=== PATIENT | male | born 1940 | race Caucasian/White ===

== ENCOUNTER 2017-04-06 08:49 | Emergency (ER) | payer MEDICARE ==
[2017-04-06 10:20] LABS: BASOPHILS 0 % (0-2); EOSINOPHILS 0 % (0-7); HEMATOCRIT 43.1 % (42.0-54.0); HEMOGLOBIN 14.6 g/dL (13.5-17.5); IMMATURE GRANULOCYTES 0.2 % (0-5); LYMPHOCYTES 5.7 % (15-50); MCH 30.9 pg (26.0-34.0); MCHC 33.9 g/dL (31.0-37.0); MCV 91.3 fL (80.0-100.0); MEAN PLATELET VOLUME 10.3 fL (7.4-10.4); MONOCYTES 5.4 % (2-11); NEUTROPHILS 88.7 % (40-80); PLATELET COUNT 287 10x3/uL (130-400); RBC 4.72 10x6/uL (4.20-6.10); RDW 12.6 % (11.5-14.5); WBC 13.2 10x3/uL (4.8-10.8)
[2017-04-06 10:34] LABS: ALBUMIN 3.5 g/dL (3.4-5.0); ANION GAP 13.5 mmol/L (8-16); BILIRUBIN - TOTAL 0.24 mg/dL (0.2-1.3); CALCIUM 9.1 mg/dL (8.5-10.1); CARBON DIOXIDE 26.7 mmol/L (21.0-32.0); CREATININE - SERUM 1.2 mg/dL (0.6-1.3); POTASSIUM - SERUM 4.2 mmol/L (3.5-5.1); PROTEIN - SERUM 7.7 g/dL (6.4-8.2)
[2017-04-06 10:41] LABS: TROPONIN-I 0.033 ng/mL (0.000-0.060)
[2017-04-06 11:16] LABS: APPEARANCE CLEAR (CLEAR); BACTERIA FEW /hpf (NONE SEEN); BILIRUBIN NEGATIVE (NEGATIVE); COLOR STRAW (YELLOW); EPITHELIAL CELLS 0-5 /hpf (0-5); GLUCOSE NEGATIVE (NEGATIVE); KETONE NEGATIVE (NEGATIVE); MUCUS <1+ /lpf (NONE SEEN); NITRITE NEGATIVE (NEGATIVE); PROTEIN NEGATIVE (NEGATIVE); RED CELLS - URINE 0-5 /hpf (0-5); SPECIFIC GRAVITY 1.015 (1.005-1.020); UROBILINOGEN NORMAL (NORMAL); WHITE CELLS - URINE OCC /hpf (0-5)
== END 2017-04-06 12:30 | disposition home or self-care (01) ==
LOC: D.ER 08:49
PROVIDERS: Emergency Medicine
DX: G45.9 Transient cerebral ischemic attack, unspecified (principal)

== ENCOUNTER 2017-04-06 14:07 | Inpatient (IN) | payer MEDICARE ==
[2017-04-06 14:35] LABS: BASOPHILS 0.1 % (0-2); EOSINOPHILS 0 % (0-7); HEMATOCRIT 43.1 % (42.0-54.0); HEMOGLOBIN 14.7 g/dL (13.5-17.5); IMMATURE GRANULOCYTES 0.2 % (0-5); LYMPHOCYTES 10.5 % (15-50); MCH 30.8 pg (26.0-34.0); MCHC 34.1 g/dL (31.0-37.0); MCV 90.4 fL (80.0-100.0); MEAN PLATELET VOLUME 10.5 fL (7.4-10.4); NEUTROPHILS 83.2 % (40-80); PLATELET COUNT 302 10x3/uL (130-400); RBC 4.77 10x6/uL (4.20-6.10); RDW 12.7 % (11.5-14.5); WBC 13.3 10x3/uL (4.8-10.8)
[2017-04-06 14:48] LABS: APTT 25.8 SECONDS (22.8-39.4)
[2017-04-06 14:53] LABS: ALBUMIN 3.6 g/dL (3.4-5.0); ANION GAP 14.1 mmol/L (8-16); BILIRUBIN - TOTAL 0.25 mg/dL (0.2-1.3); CARBON DIOXIDE 23.7 mmol/L (21.0-32.0); CREATININE - SERUM 1.3 mg/dL (0.6-1.3); POTASSIUM - SERUM 3.8 mmol/L (3.5-5.1); PROTEIN - SERUM 7.9 g/dL (6.4-8.2)
[2017-04-06 17:17] VITALS: BMI 27.5
[2017-04-06 18:08] LABS: CHOL - HDL RATIO 4.5 ratio (2.3-4.9); CHOLESTEROL, TOTAL 245 mg/dL (0-200); CKMB 2.7 U/L (0.0-3.6); CREATINE KINASE 78 UL (21-232); HDL CHOLESTEROL 55 mg/dL (32-96); LDL CHOLESTEROL 178 mg/dL (0-100); LDL-HDL RATIO 3.2 ratio (1.5-3.5); TRIGLYCERIDE 61 mg/dL (30-200); TROPONIN-I 0.045 ng/mL (0.000-0.060)
[2017-04-06 19:49] VITALS: BP 147/78
--- NOTE | 2017-04-06 20:00 | NUR ---
PT AOX4. DENIES PAIN AT THIS TIME. STATES WEAKNESS IN RUE. IV IN RIGHT FA PATENT WITH NS @ 50. URINAL AT BEDSIDE. DENIES FURTHER NEEDS AT THIS TIME. WILL CONTINUE TO MONITOR.
[2017-04-07] VITALS: BP 148/90
[2017-04-07 00:10] LABS: TROPONIN-I 0.073 ng/mL (0.000-0.060)
[2017-04-07 04:00] VITALS: BP 162/87
--- NOTE | 2017-04-07 04:08 | NUR ---
PRN ZOFRAN ADMINISTERED AT THIS TIME FOR PT C/O NAUSEA.
[2017-04-07 06:09] LABS: BASOPHILS 0.1 % (0-2); EOSINOPHILS 0.2 % (0-7); HEMATOCRIT 43.9 % (42.0-54.0); HEMOGLOBIN 14.7 g/dL (13.5-17.5); IMMATURE GRANULOCYTES 0.3 % (0-5); LYMPHOCYTES 12.1 % (15-50); MCH 30.8 pg (26.0-34.0); MCHC 33.5 g/dL (31.0-37.0); MCV 91.8 fL (80.0-100.0); MEAN PLATELET VOLUME 10.8 fL (7.4-10.4); MONOCYTES 9.8 % (2-11); NEUTROPHILS 77.5 % (40-80); PLATELET COUNT 328 10x3/uL (130-400); RBC 4.78 10x6/uL (4.20-6.10); RDW 12.8 % (11.5-14.5); WBC 11.9 10x3/uL (4.8-10.8)
[2017-04-07 06:53] LABS: ALBUMIN 3.5 g/dL (3.4-5.0); ALKALINE PHOSPHATASE 104 U/L (46-116); ALT (SGPT) 15 U/L (10-68); BILIRUBIN - TOTAL 0.34 mg/dL (0.2-1.3); CALCIUM 8.5 mg/dL (8.5-10.1); CHLORIDE - SERUM 103 mmol/L (98-107); CKMB 3.2 U/L (0.0-3.6); CREATINE KINASE 87 UL (21-232); CREATININE - SERUM 1.1 mg/dL (0.6-1.3); POTASSIUM - SERUM 3.7 mmol/L (3.5-5.1); PROTEIN - SERUM 7.5 g/dL (6.4-8.2); SODIUM 139 mmol/L (136-145); UREA NITROGEN 18 mg/dL (7-18); eGFR NON AFRICAN AMERICAN 69 mL/min (90-120)
[2017-04-07 06:55] LABS: CALC OSMOLALITY 280 mosm/kg (275-300); GLUCOSE 115 mg/dL (74-106); TROPONIN-I 0.108 ng/mL (0.000-0.060)
--- NOTE | 2017-04-07 07:30 | NUR ---
ASSESSMENT COMPLETE. IV TO R FA PATENT. NS INFUSING AT 50 CC/HR VIA PUMP. WEAKNESS NOTED TO RUE. LOGGING OPERATIONS INSPECTOR SHOWING SR 94 PER TECH. NPO FOR PROCEDURE THIS AM. DENIES ANY NEEDS AT THIS TIME.
[2017-04-07 08:01] VITALS: BP 159/96
--- NOTE | 2017-04-07 09:41 | NUR ---
OFF FLOOR FOR CTA CAROTOIDS VIA WC.
[2017-04-07 10:59] VITALS: BMI 27.4
--- NOTE | 2017-04-07 11:01 | NUR ---
Rehab Note- Acute rehab Prescreen order received. The patient has an acute rehab diagnosis and would be a good candidate for acute rehab stay when medically stable and has completed his acute medical work up and ready for discharge from the acute hospital. Will follow at this time. Thank you for this referral! Anusha Zaragoza RN Clinical Liaison, [facility] Rehab
--- NOTE | 2017-04-07 12:00 | NUR ---
RESTING QUIETLY IN BED. SCD'S IN USE TO BILAT LEGS. KATELYN MAT IN USE.
[2017-04-07 12:27] VITALS: BP 155/86
--- NOTE | 2017-04-07 16:00 | NUR ---
RESTING QUIETLY IN BED. DENIES ANY NEEDS AT THIS TIME. REPORTS THAT TYLENOL WAS EFFECTIVE FOR HEADACHE.
[2017-04-07 16:04] VITALS: BP 160/87
--- NOTE | 2017-04-07 18:15 | NUR ---
OT NOTE: PT COMPLETED BUE AROM EXS FOR INCREASED SAFETY WITH RW MANAGEMENT . PT COMPLETED BED MOB WITH CGA. PT COMPLETED SITTING BALANCE WITH CGA. PT COMPLETED ADL TASK WITH SET UP. THANK YOU, TIMOTHY AGUILA
--- NOTE | 2017-04-07 19:35 | NUR ---
AOX4 ASSISTED PT TO BATHROOM, UNSTEADY GAIT. IV RIGHT FA NS @50. SCD'S ON, KATELYN ALARM ON. INSTRUCTED TO USE CALL LIGHT FOR ASSISTANCE TO THE BATHROOM, PT VERBALLY UNDERSTANDS TO CALL. BED IN LOW POSITION. DENIES ANY NEEDS AT THIS TIME. WILL CONTINUE TO MONITOR.
[2017-04-07 20:00] VITALS: BP 146/89
--- NOTE | 2017-04-07 22:53 | NUR ---
PRN RESTORIL ADMINISTERED FOR INSOMNIA
[2017-04-08] VITALS: BP 138/80
[2017-04-08 04:00] VITALS: BP 140/80
[2017-04-08 05:01] LABS: BASOPHILS 0.2 % (0-2); EOSINOPHILS 1.1 % (0-7); HEMATOCRIT 42.8 % (42.0-54.0); HEMOGLOBIN 14.3 g/dL (13.5-17.5); IMMATURE GRANULOCYTES 0.2 % (0-5); LYMPHOCYTES 17.9 % (15-50); MCH 30.8 pg (26.0-34.0); MCHC 33.4 g/dL (31.0-37.0); MEAN PLATELET VOLUME 10.5 fL (7.4-10.4); MONOCYTES 10.6 % (2-11); PLATELET COUNT 284 10x3/uL (130-400); RBC 4.65 10x6/uL (4.20-6.10); RDW 12.8 % (11.5-14.5); WBC 8.8 10x3/uL (4.8-10.8)
--- NOTE | 2017-04-08 07:07 | NUR ---
REPORT RECEIVED, ASSUMED CARE OF PT. SITTING UP IN BED, DRINKING COFFEE, NO NEEDS VOICED AT THIS TIME. R FOREARM IV INFUSING ORDERED, DRSG C/D/I. TELEMETRY IN PLACE, SR 90 BPM. BED IN LOWEST POSITION, SIDE RAILS UP X 2, CALL LIGHT WITHIN REACH.
[2017-04-08 07:58] VITALS: BP 165/85
[2017-04-08 12:43] VITALS: BP 145/89
[2017-04-08 15:49] VITALS: BP 147/80
--- NOTE | 2017-04-08 19:37 | NUR ---
PATIENT RESTING IN BED WITH FAMILY AT BEDSIDE AND DENIES NEEDS AT THIS TIME. BED IN LOWEST POSITION AND CALL LIGHT WITHIN REACH. ENCOURAGED THE PATIENT TO CALL IF HE HAS NEEDS.
[2017-04-08 20:00] VITALS: BP 150/87
[2017-04-09] VITALS: BP 142/77
[2017-04-09 04:00] VITALS: BP 141/85
[2017-04-09 05:28] LABS: BASOPHILS 0.2 % (0-2); EOSINOPHILS 2.9 % (0-7); HEMOGLOBIN 14.3 g/dL (13.5-17.5); IMMATURE GRANULOCYTES 0.1 % (0-5); LYMPHOCYTES 17.7 % (15-50); MCH 30.5 pg (26.0-34.0); MCHC 33.3 g/dL (31.0-37.0); MCV 91.7 fL (80.0-100.0); MEAN PLATELET VOLUME 10.7 fL (7.4-10.4); MONOCYTES 11.8 % (2-11); NEUTROPHILS 67.3 % (40-80); PLATELET COUNT 292 10x3/uL (130-400); RBC 4.69 10x6/uL (4.20-6.10); RDW 12.8 % (11.5-14.5); WBC 8.6 10x3/uL (4.8-10.8)
--- NOTE | 2017-04-09 07:20 | NUR ---
REPORT RECEIVED, ASSUMED CARE OF PT. RESTING, EASILY AROUSED. R FOREARM IV INFUSING ORDERED, DRSG C/D/I. BILATERAL SCD'S IN PLACE. BED IN LOWEST POSITION, SIDE RAILS UP X 2, CALL LIGHT WITHIN REACH.
[2017-04-09 08:30] VITALS: BP 154/98
[2017-04-09 12:12] VITALS: BP 148/87
[2017-04-09 16:08] VITALS: BP 136/76
--- NOTE | 2017-04-09 19:42 | NUR ---
PATIENT RESTING IN BED AND DENIES NEEDS AT THIS TIME. BED IN LOWEST POSITION AND CALL LIGHT WITHIN REACH. ENCOURAGED THE PATIENT TO CALL IF HE HAS NEEDS.
[2017-04-09 20:34] VITALS: BP 151/82
[2017-04-10] VITALS: BP 144/79
[2017-04-10 04:00] VITALS: BP 120/67
[2017-04-10 04:34] LABS: BASOPHILS 0.2 % (0-2); EOSINOPHILS 3.2 % (0-7); HEMATOCRIT 42.7 % (42.0-54.0); HEMOGLOBIN 14.3 g/dL (13.5-17.5); IMMATURE GRANULOCYTES 0.2 % (0-5); LYMPHOCYTES 18.8 % (15-50); MCH 30.7 pg (26.0-34.0); MCHC 33.5 g/dL (31.0-37.0); MCV 91.6 fL (80.0-100.0); MEAN PLATELET VOLUME 10.9 fL (7.4-10.4); MONOCYTES 10.8 % (2-11); NEUTROPHILS 66.8 % (40-80); PLATELET COUNT 272 10x3/uL (130-400); RBC 4.66 10x6/uL (4.20-6.10); RDW 12.8 % (11.5-14.5); WBC 8.5 10x3/uL (4.8-10.8)
--- NOTE | 2017-04-10 07:30 | NUR ---
ASSESSMENT COMPLETE NO DISTRESS NOTED VOICES ALL NEEDS TO STAFF CALL LIGHT IN REACH SIDE RAILS UP X 2 MOBILE PER STAND BY ASSIST.
[2017-04-10 07:58] VITALS: BP 158/101
[2017-04-10 10:14] LABS: ALBUMIN 2.9 g/dL (3.4-5.0); ALKALINE PHOSPHATASE 88 U/L (46-116); ALT (SGPT) 16 U/L (10-68); BILIRUBIN - TOTAL 0.32 mg/dL (0.2-1.3); CALC OSMOLALITY 283 mosm/kg (275-300); CALCIUM 8.3 mg/dL (8.5-10.1); CARBON DIOXIDE 26.9 mmol/L (21.0-32.0); CHLORIDE - SERUM 106 mmol/L (98-107); GLUCOSE 115 mg/dL (74-106); POTASSIUM - SERUM 4.3 mmol/L (3.5-5.1); PROTEIN - SERUM 6.1 g/dL (6.4-8.2); SODIUM 141 mmol/L (136-145); UREA NITROGEN 17 mg/dL (7-18); eGFR NON AFRICAN AMERICAN 77 mL/min (90-120)
--- NOTE | 2017-04-10 10:20 | NUR ---
Patient Name: GIFTY REY Admission Status: ER Accout number: [id number] Admission Date: 04-06-2017 : 1940 Admission Diagnosis:CEREBRAL INFARCTION, UNSPECIFIED Attending: LISSA VASQUEZ Current LOS: 4 Anticipated DC Date: Planned Disposition: Inpatient Rehab Primary Insurance: MEDICARE A & B Discharge Planning Comments: CM met with patient to assess discharge planning needs. Patient stated that he lives independently with his daughter (Amy) and her family and that is where he plans to return at discharge. Patient stated that he does not use and DME or HH services, but would like to go to our inpatient rehab if he could before going home. Patient does not have any stairs in his home and his daughter will be the one to drive him home at discharge. CM will continue to follow and assist with discharge planning needs. PCP: Danny [facility] [address] [place] (daughter) [phone] Director Of Psychiatry: Sylvie Iqbal * Is the patient Alert and Oriented? Yes 0 * How many steps to enter\exit or inside your home? 0 0 * PCP Danny 0 * [facility]acy [facility] 0 * Preadmission Environment Home with Family 0 * ADLs Independent 0 * Equipment None 0 * List name and contact numbers for known caregivers / representatives who currently or will assist patient after discharge: Amy Fraser (daughter) [phone] 0 * Community resources currently utilized None 0 * Additional services required to return to the preadmission environment? No 0 * Can the patient safely return to the preadmission environment? Yes 0 * Has this patient been hospitalized within the prior 30 days at any hospital? No 0 Grand Total: 0
[2017-04-10] MEDS ORDERED: PROTONIX40 MG PO (10:58)
[2017-04-10] MEDS ORDERED: ONDANSETRON4 MG/2 M3 IV (10:58)
[2017-04-10] MEDS ORDERED: ACETAMINOPHEN325 MG PO (11:00)
[2017-04-10] MEDS ORDERED: PRAVASTATIN SOD10 MG PO (11:00)
[2017-04-10] MEDS ORDERED: ELIQUIS5 MG PO (11:00)
[2017-04-10] MEDS ORDERED: ECOTRIN325 MG PO (11:00)
[2017-04-10] MEDS ORDERED: RESTORIL15 MG PO (11:00)
--- NOTE | 2017-04-10 16:00 | NUR ---
REPORT CALLED TO [facility] ON REHAB UNIT PT TO DISCHARGE TO ROOM 1115 PT TO BE TRANSFERED VIA WHEELCHAIR NO DISTRESS NOTED.
--- NOTE | 2017-04-10 16:16 | NUR ---
PT AOX4 RESP EVEN AND NONLABORED PT HERE FOR POSSIBLE STROKE FOR THIS VISIT PT DENIES NEEDS AT THIS TIME SRX2 BED AT LOWEST SETTING CALL LIGHT WITHIN REACH WILL CONTINUE TO MONITOR
--- NOTE | 2017-04-21 16:56 | EC ---
PATIENT:GIFTY REY DATE OF SERVICE: 04/06/17 SEX: M MEDICAL RECORD: [id number] DATE OF : 40 LOCATION:[facility] AGE OF PATIENT: 77 ADMISSION DATE: 04/06/17 REFERRING PHYSICIAN: INTERPRETING PHYSICIAN: CHRIS NICOLE MD ECHOCARDIOGRAM REPORT ECHO CHARGES 4 ECHO COMPLETE CLINICAL DIAGNOSIS: CVA HX OF CAD/STENTS ECHOCARDIOGRAPHIC MEASUREMENTS (adult normal given) AC root (d.<3.7cm) 3.8 cm LV Septum d (<1.2 cm> 0.90 cm Valve Excursion 1.6 cm LV Septum (systole) 1.2 cm Left Atria (s.<4.0cm> 3.7 cm LVPW d(<1.2cm) 1.0 cm RV (d.<2.3cm) 3.8 cm LVPW (sytole) 1.5 cm LV diastole(<5.6CM) 6.6 cm MV E-F(>70mm/sec) cm LV systole 5.8 cm LVOT Diameter 1.6 cm MV exc.(>10mm) 1.0 cm Est.ejection fraction (50-75%) % Pericardial Effusion N DOPPLER: LVIT cm/sec A 82.0 cm/sec E 110 cm/sec LA cm/sec RVSP 25 mmHg LVOT 103 cm/sec AOP1/2T m/s Asc. Ao 146 cm/sec RVOT 72 cm/sec RA cm/sec PA 84 cm/sec AV Gradient Peak 8.49 mmHg AV Mean 5.21 mmHg AV Area 2.2 cm MV Gradient Peak 6.19 mmHg MV Mean 1.95 mmHg MV Area cm COMMENTS: Downstream Biomanufacturing Technician: Boris JARRELL Pocket Cutter: 1 Dr. Nicole TAPE# PACS DATE OF SERVICE: 04/07/2017 Echocardiogram FINDINGS: 1. Left ventricular chamber size is dilated. Left ventricular systolic function is markedly reduced, overall ejection fraction in the 25% range. 2. Left atrium is within normal limits at 3.7 cm. Right atrium and right ventricular chamber sizes are mildly dilated. 3. Valvular structures have normal structure and motion. ECHOCARDIOGRAM REPORT [id number] GIFTY REY 4. Doppler interrogation reveals mild mitral regurgitation, mild tricuspid regurgitation, no other valvular insufficiency or stenosis and pulmonary systolic pressure is estimated normal at 25 mmHg. 5. No evidence of pericardial effusion or left ventricular thrombus. 6. No cardiac source of neurologic emboli. TRANSINT:[id number] Voice Confirmation ID: [id number] DOCUMENT ID: [id number] CHRIS NICOLE MD at 1656 CC: [id number] DICTATION DATE: 04/07/17 1138 FOREST FIRE OFFICER: 04/07/17 1228 DIS IN 04/10/17 [id number] [place] [address]
--- NOTE | 2017-04-21 16:56 | CN ---
PATIENT NAME:GIFTY REY MEDICAL RECORD: [id number] : 40 LOCATION:[facility] ADMIT DATE: 04/06/17 ACCOUNT: [id number] CONSULTING PHYSICIAN: CHRIS CULVER MD REFERRING PHYSICIAN: LISSA FRIAS MD DATE OF CONSULTATION: 04/10/2017 DIAGNOSES: 1. Cardiomyopathy. 2. Coronary artery disease. 3. Previous PTCA and stent. 4. Cerebrovascular accident. 5. Hypertension. 6. Hyperlipidemia. HISTORY OF PRESENT ILLNESS: This is a gentleman, who presented to the hospital, CVA symptomatology, no cardiac symptomatology. Echocardiogram revealed no cardiac source of neurologic emboli, but his ejection fraction was in the 25% range with dilated cardiomyopathy. He has absolutely got zero symptomatology from a heart failure standpoint, got zero symptomatology from anginal standpoint. He did have coronary stents approximately 10 years ago, has not had any problems since. PHYSICAL EXAMINATION: GENERAL APPEARANCE: Well-nourished, well-developed, appears stated age. Level of distress, comfortable. PSYCHIATRIC: Mental status, alert, normal affect. Orientation, oriented to time, place and person. EYES: Lids and conjunctiva, noninjected. No discharge, no pallor. ENT: Lips, teeth, gums, normal dentition. Oropharynx, no cyanosis, no pallor. NECK: Carotid arteries, bilateral normal upstroke, no bruits, no thrills. JUGULAR VEINS: No jugular venous pressure or distention. CERVICAL LYMPH NODES: Nontender, nonenlarged. THYROID: Not enlarged. Nontender. No nodules. LUNGS: Respiratory effort, unlabored. CHEST: Normal curvature. No thoracic deformity. No chest wall tenderness. Percussion, resonant. Auscultation, clear. No wheezes, no rales, no rhonchi. CARDIOVASCULAR: Precordial exam, nondisplaced. No heaves or pericardial thrills. Rate and rhythm, regular. Heart sounds, normal S1, normal S2. No S3, no gallop, no rub. Systolic murmur, not heard. Diastolic murmur, not heard. EXTREMITIES: No cyanosis, no edema. Peripheral pulses, full and equal in all extremities, except as noted. No bruits appreciated. ABDOMEN: Soft, nondistended. Normal aorta. No bruit. Nontender. No masses. Liver, nontender, no hepatomegaly. Spleen, nontender, no splenomegaly. MUSCULOSKELETAL: No joint tenderness. No joint swelling. No erythema. NEUROLOGICAL: Normal gait, normal strength, normal tone. SKIN: Warm and dry. OVERALL IMPRESSION: Cardiomyopathy. He is totally asymptomatic. His heart rate and blood pressure are still elevated. We will add Coreg 12.5 b.i.d. to his medical regimen, continuing his Pravachol and aspirin. He is now on Eliquis secondary to the stroke. At this time, no other cardiac workup is necessary. I am happy to follow up with him once he gets out of the hospital and follow the cardiomyopathy. If any symptomatology does develop, we will proceed with repeat coronary angiography, but at this time only medical management and treatment of CONSULT REPORT [id number] GIFTY REY the cardiomyopathy. TRANSINT:[id number] Voice Confirmation ID: [id number] DOCUMENT ID: [id number] CHRIS CULVER MD at 1656 CC: [id number] DICTATION DATE: 04/10/17 1224 PHOTOLITH OPERATOR: 04/10/17 1309 DIS IN 04/10/17 [facility] [address] [place] [address]
== END 2017-04-10 17:00 | DRG 65 ==
LOC: D.ER 14:07 → D.MS 14:49
PROVIDERS: Emergency Medicine; Family Medicine; ADMIT Family Medicine
DX: I63.512 Cerebral infarction due to unspecified occlusion or stenosis of left middle cerebral artery (principal); I42.0 Dilated cardiomyopathy; I10 Essential (primary) hypertension; E78.5 Hyperlipidemia, unspecified; F03.90 Unspecified dementia, unspecified severity, without behavioral disturbance, psychotic disturbance, mood disturbance, and anxiety; R26.2 Difficulty in walking, not elsewhere classified; R47.1 Dysarthria and anarthria; Q30.8 Other congenital malformations of nose

== ENCOUNTER 2017-04-10 16:34 | Inpatient (IN) | payer MEDICARE ==
--- NOTE | 2017-04-10 14:50 | NUR ---
PATIENT ADMITTED FROM [facility]. BROUGHT DOWN IN WHEELCHAIR ACCOMPANIED BY STAFF AND FAMILY. DIAG: CVA, WEAKNESS. ALERT/ORIENTX3. SPEECH CLEAR. ON A AHA DIET. RFA IV SL.
[~2017-04-10 16:34] MED LIST: ACETAMINOPHEN325 MG PO; ECOTRIN325 MG PO; ELIQUIS5 MG PO; ONDANSETRON4 MG/2 M3 IV; PRAVASTATIN SOD10 MG PO; PROTONIX40 MG PO; RESTORIL15 MG PO
[2017-04-10 16:56] VITALS: BP 172/98; BMI 27.5
--- NOTE | 2017-04-10 19:15 | NUR ---
PT. IN BED WITH HOB UP FOR COMFORT WITH EYES CLOSED AND RESP. EVEN. PT. AWAKENS EASILY FOR ASSSSMENT. PT. KNOWS ME FROM OUTSIDE THIS HOSPITAL. NO VOICED NEEDS AND HIS CALL LIGHT IS WITHIN REACH.
[2017-04-10 20:00] VITALS: BP 132/84; BP 132/85
--- NOTE | 2017-04-10 23:12 | NUR ---
PT. IN BED WITH HOB UP FOR COMFORT AND IS LYING ON HIS LEFT SIDE. EYES CLOSED AND RESP. DEEP AND EVEN. CALL LIGHT REMAINS WITHIN REACH.
--- NOTE | 2017-04-11 03:10 | NUR ---
PT. IN BED WITH HOB UP FOR COMFORT AND LYING ON HIS LEFT SIDE. EYES CLOSED AND RESP. DEEP AND EVEN WITH CALL LIGHT WITHIN REACH.
--- NOTE | 2017-04-11 08:00 | NUR ---
SHIFT ASSMT COFMPLETED.CL IN REACH.
[2017-04-11 08:41] VITALS: BP 143/80
--- NOTE | 2017-04-11 12:00 | NUR ---
SITTING UP ON SIDE OF BED.LUNCH GIVEN.
[2017-04-11 14:10] VITALS: BMI 27.4
--- NOTE | 2017-04-11 15:59 | NUR ---
PATIENT ADMITTED TO REHAB FROM ACUTE FLOOR. DR. PAPPAS IS HIS PCP AND [facility] IS HIS PHARMACY. PLANS ARE FOR PATIENT TO DISCHARGE HOME WITH HIS DAUGHTER QUENTIN. WILL CONTINUE TO FOLLOW WITH PATIENT AND WILL ASSIST WITH DISCHARGE NEEDS.
--- NOTE | 2017-04-11 19:35 | NUR ---
PT. IN BED WITH HOB UP FOR COMFORT AND IS WATCHING TV. NO VOICED NEEDS AND HIS CALL LIGHT IS WITHIN REACH.
--- NOTE | 2017-04-11 20:00 | NUR ---
PT IN BED WITH HOB UP FOR COMFORT. WATCHING TV. ALERT & ORIENTED. KATELYN ALARM. NO O2. NO IV. BED IN LOWEST POSITION AND CALL LIGHT WITHIN REACH.
[2017-04-11 22:09] VITALS: BP 148/76
--- NOTE | 2017-04-12 | NUR ---
PT IN BED WITH HOB UP FOR COMFORT. RESTING QUIETLY. RESPIRATIONS EVEN AND UNLABORED. BED IN LOWEST POSITION AND CALL LIGHT WITHIN REACH.
[2017-04-12 06:12] LABS: BASOPHILS 0.1 % (0-2); EOSINOPHILS 3.1 % (0-7); HEMATOCRIT 44.1 % (42.0-54.0); HEMOGLOBIN 14.6 g/dL (13.5-17.5); IMMATURE GRANULOCYTES 0.2 % (0-5); MCH 30.7 pg (26.0-34.0); MCHC 33.1 g/dL (31.0-37.0); MCV 92.6 fL (80.0-100.0); MONOCYTES 10.2 % (2-11); NEUTROPHILS 65.4 % (40-80); PLATELET COUNT 290 10x3/uL (130-400); RBC 4.76 10x6/uL (4.20-6.10); RDW 12.8 % (11.5-14.5); WBC 8.2 10x3/uL (4.8-10.8)
[2017-04-12 06:49] LABS: CALC OSMOLALITY 281 mosm/kg (275-300); CALCIUM 8.9 mg/dL (8.5-10.1); CARBON DIOXIDE 28.7 mmol/L (21.0-32.0); CHLORIDE - SERUM 104 mmol/L (98-107); CHOL - HDL RATIO 3.6 ratio (2.3-4.9); CHOLESTEROL, TOTAL 167 mg/dL (0-200); CREATININE - SERUM 0.9 mg/dL (0.6-1.3); GLUCOSE 107 mg/dL (74-106); HDL CHOLESTEROL 47 mg/dL (32-96); LDL CHOLESTEROL 109 mg/dL (0-100); LDL-HDL RATIO 2.3 ratio (1.5-3.5); POTASSIUM - SERUM 4.2 mmol/L (3.5-5.1); SODIUM 140 mmol/L (136-145); TRIGLYCERIDE 55 mg/dL (30-200); UREA NITROGEN 22 mg/dL (7-18); eGFR NON AFRICAN AMERICAN 87 mL/min (90-120)
--- NOTE | 2017-04-12 08:00 | NUR ---
SHIFT ASSMT COMPLETED.DENIES NEEDS.BREAKFAST TRAY GIVEN.CL IN REACH.
[2017-04-12 08:42] VITALS: BP 139/82
--- NOTE | 2017-04-12 12:00 | NUR ---
SITTING UP IN CHAIR EATING LUNCH.
--- NOTE | 2017-04-12 15:25 | NUR ---
CARE TEAM MEETING: PATIENT ATTENDED MEETING AND WANTED TO KNOW WHEN HE COULD GO HOME. TENATIVE DISCHARGE DATE IS PENDING. WILL CONTINUE TO FOLLOW WITH PATIENT AND WILL ASSIST WITH DISCHARGE NEEDS.
--- NOTE | 2017-04-12 16:00 | NUR ---
RESTING QUIETLY.CL IN REACH.
--- NOTE | 2017-04-12 19:18 | NUR ---
PT. IN BED WITH HOB UP FOR COMFORT AND IS WATCHING TV. NO VOICED NEEDS AND HIS CALL LIGHT IS WITHIN REACH.
[2017-04-12 20:30] VITALS: BP 149/88
--- NOTE | 2017-04-12 23:10 | NUR ---
PT. IN BED WITH HOB SLIGHTLY ELEVATED FOR COMFORT. EYES CLOSED AND RESP. EVEN WITH CALL LIGHT WITHIN REACH.
--- NOTE | 2017-04-13 03:05 | NUR ---
PT. IN BED LYING ON HIS LEFT SIDE WITH EYES CLOSED AND RESP. EVEN. CALL LIGHT REMAINS WITHIN REACH.
--- NOTE | 2017-04-13 07:20 | NUR ---
RESTING QUIETLY IN BED. BED IN LOWEST POSITION. CALL LIGHT IN REACH
[2017-04-13 08:05] VITALS: BP 150/83
--- NOTE | 2017-04-13 18:04 | NUR ---
EATING SUPPER IN BED. DENIES NEEDS.
--- NOTE | 2017-04-13 21:20 | NUR ---
RESTING IN BED WITH EYES CLOSED. LAYING ON RIGHT SIDE. NO S/S OF DISTRESS OBSERVED. CALL LIGHT AND OVERBED TABLE IN REACH.
[2017-04-13 22:56] VITALS: BP 133/77
--- NOTE | 2017-04-13 23:34 | NUR ---
RECIEVED UP IN BED WITH HOB ELEVATED. FAMILY AT BEDSIDE. PLEASANT AND COOPERATIVE. DENIES ANY PAIN. CALL LIGHT AND OVERBED TABLE IN REACH.
--- NOTE | 2017-04-14 00:32 | NUR ---
RESTINGIN BED WITH EYES CLOSED. NO S/S OF DISTRESS OBSESRVED. CALL LIGHT AND OVERBED TABLE IN [facility].
--- NOTE | 2017-04-14 02:28 | NUR ---
RESTING IN BED WITH EYES CLOSED. NO S/S OF DISTRESS OBSERVED. CALL LIGHT AND OVERBED TABLE IN REACH.
--- NOTE | 2017-04-14 04:19 | NUR ---
RESTING IN BED WITH EYES CLOSSED. NO S/S OF DISTRESS OBSERVED. LAYING ON RIGHT SIDE. CALL LIGHT AND OVERBED TABLE IN REACH. BED ALARM ON AND FUNCTIONING PROPERLY.
--- NOTE | 2017-04-14 08:00 | NUR ---
SITTING UP IN W/C IN ROOM EATING BREAKFAST. DENIES NEEDS.
--- NOTE | 2017-04-14 11:33 | NUR ---
PATIENT DISCHRGING HOME WITH FAMILY. PATIENT DECLINES HOME HEALTH AT THIS TIME. NO DME NEEDED PER PATIENT. DR. PAPPAS 04/24/17 @ 12:00, 05/16/17 @ 2:00, DR. OCHOA 04/26/17 @ 10:20. PATIENT CHOICE FORM FOR HOME HEALTH AND [facility] FORM SIGNED, EXPLAINED AND FILED IN CHART.
--- NOTE | 2017-04-14 12:00 | NUR ---
D/C HOME WITH ALL PERSONAL BELONGINGS. WENT OVER D/C INSTRUCTIONS WITH PT PRIOR TO D/C. HE DENIES QUESTIONS. WALKED OUT OF UNIT WITH STAFF. MEDS CALLED INTO HIS PHARMACY.
[2017-04-14 15:16] VITALS: BP 161/89
--- NOTE | 2017-04-14 16:32 | RHP ---
PATIENT: GIFTY REY MEDICAL RECORD: [id number] ACCOUNT: [id number] LOCATION:[facility]1115 : 40 ADMISSION DATE: 04/10/17 REHABILITATION HISTORY AND PHYSICAL EXAMINATION POST ADMISSION PHYSICIAN EXAMINATION Post-Admission Physical Examination and History and Physical DATE OF ADMISSION: 04/10/2017 ADMITTING DIAGNOSES: Left middle cerebral artery distribution infarction. HISTORY OF PRESENT ILLNESS: The patient is a 77-year-old gentleman, who presented to the inpatient rehab with a left middle cerebral artery infarction. On April 06, he was in the Emergency Room complaining of right-sided numbness and weakness. He was diagnosed with a TIA and discharged home. Later that day, he went to [facility] with his family, was eating, had sudden onset of difficulty speaking, right upper extremity numbness and weakness. He returned to the Emergency Room. He is alert, has slurred speech, right-sided facial weakness and complete paralysis of the right upper extremity. CT of the head was negative. He has a history of hypertension, hyperlipidemia and coronary artery disease. He is on aspirin and Plavix at home, but states that his of 47 years 6 months ago and he neglected his own health by caring for her. He is continued on aspirin daily, but has not been taking his Plavix religiously or treating his hypertension. He was admitted with a neurologic consult. Dr. Lopez felt like his symptoms were consistent with a left middle cerebral artery distribution infarction. A bedside swallow eval revealed oral phase dysphagia and recommended speech therapy to followup for swallowing safety, intermittent supervision while eating and aspiration precautions. Previously, he was independent with ADLs and mobility without device. Currently, symptoms have improved significantly since onset with improvement in voice, ability to lift his right upper extremity and walking improved. He continues to be minimum to moderate assist for ADLs and mobility. He plans to discharge home after rehabilitation. COMORBIDITIES: Include right-sided weakness, slurred speech, right facial weakness, oral stage dysphagia, coronary artery disease, mild mitral regurg and tricuspid regurg, right internal carotid artery stenosis, hyperlipidemia, hypertension, myocardial infarction in 2002, asthma and dementia. PAST MEDICAL HISTORY: Significant for coronary artery disease, hyperlipidemia, hypertension, asthma and dementia. PAST SURGICAL HISTORY: Include PTCA with stent. ALLERGIES: No known drug allergies. CURRENT MEDICATIONS: Include Cepacol lozenges as needed, Protonix 40 mg daily, aspirin 325 mg daily, Restoril 15 mg q.h.s., Pravachol 10 mg q.h.s., Zofran 4 mg q.6 hours p.r.n. nausea and vomiting, Eliquis 5 mg b.i.d. and Tylenol 650 mg q.6 hours p.r.n. HABITS: No alcohol or tobacco use. FAMILY HISTORY: Noncontributory. HISTORY AND PHYSICAL [id number] GIFTY REY SOCIAL HISTORY: The patient once again plans to return home after leaving the rehab. REVIEW OF SYSTEMS: GENERAL: Does complain of weakness mainly on his right side. HEENT: Denies cold, cough or congestion. CARDIOVASCULAR: Denies chest pain. PHYSICAL EXAMINATION: VITAL SIGNS: Stable, afebrile. GENERAL: Elderly gentleman in no acute distress, alert upon exam. HEENT: Normocephalic and atraumatic. Mucosa moist. NECK: Supple. No lymphadenopathy. LUNGS: Clear. HEART: Regular rate and rhythm. ABDOMEN: Benign. EXTREMITIES: No clubbing, cyanosis or edema. NEUROLOGIC: Does have noted weakness on his right side. ASSESSMENT: This is a 77-year-old gentleman admitted to the rehab with a working diagnosis of cerebrovascular accident involving the left middle cerebral artery. The patient has potential to make improvement. We instituted the following multidisciplinary therapies including, but not limited to physical, occupational, respiratory, speech, nutritional services, prosthetics and orthotics. Given his complex condition and risk for more complications, rehabilitation services cannot be provided at a lower level of care such as a long-term facility. PLAN: 1. Admit to [facility] rehab for intensive inpatient therapy to include the following disciplines: A. Physical therapy to improve gait, all transfer skills and bed mobility to a modified independent level. B. Occupational therapy to improve activities of daily living to a modified independent level. C. Case management to assist with discharge planning and placement options. D. Nutrition to assist with nutritional needs. E. Rehabilitation nursing to assist in monitoring the patient's underlying medical conditions and to assist with any type of bowel or bladder management. 2. The patient's current medications and medical care will be continued. 3. The patient will be placed on standard fall precautions. 4. The patient's estimated length of stay is approximately 7-10 days. 5. Discuss this patient during care team staff meeting this week. TRANSINT:[id number] Voice Confirmation ID: [id number] DOCUMENT ID: [id number] MICHELLE notes whether there has been none or any medical/functional change since admission: - No change since prescreen. MICHELLE attests patient continues to be appropriate for IRF: - Continues to be appropriate. HISTORY AND PHYSICAL [id number] GIFTY REY SCOTT MD at 1632 CC: [id number] DICTATION DATE: 04/11/17 1004 GASKET WINDER: 04/11/17 1035 DIS IN 04/14/17 [facility] [address] [id number]
--- NOTE | 2017-06-25 16:26 | DS ---
PATIENT:GIFTY REY :40 MEDICAL RECORD: [id number] DISCHARGE SUMMARY ADMISSION DATE: 04/10/17 DISCHARGE DATE: 04/14/17 DATE OF DISCHARGE: 04/14/2017 from the inpatient rehab. PRIMARY DIAGNOSIS: Decreased functional ability and ability to provide activities of daily living status post cerebrovascular accident. SECONDARY DIAGNOSES: 1. Hyperlipidemia. 2. Hypertension. 3. Coronary artery disease. 4. Dysphagia. 5. Asthma. 6. Dementia. HOSPITAL COURSE: Full H&P is located elsewhere on the chart on this 77-year-old male, who was admitted to inpatient rehab for physical therapy and occupational therapy to improve gait, transfer skills, bed mobility, and activities of daily living to a modified independent level. He was evaluated by PT and OT and their plans of care were followed. He required senior care care for observation and assessment and medication administration. He was seen by speech therapy for management of dysphagia. Electrolytes were managed by protocol. He was cooperative with therapies, progressing towards goals. Case management was involved for discharge planning. He was considered stable for discharge on 04/14/2017. DISCHARGE MEDICATIONS: As per discharge medication reconciliation. DISCHARGE DISPOSITION: The patient is discharged home. He will continue his current diet and level of activity. He will follow up with primary care and specialists as directed. At least 30 minutes was spent in this discharge activity. TRANSINT:[id number] Voice Confirmation ID: [id number] DOCUMENT ID: [id number] Dictated By: YISSEL ANSARI I have interviewed/examined the above patient and agree with these documented findings. HEATHER CAIN MD at 1626 at 1628 CC: [id number] DICTATION DATE: 06/24/17 1124 VAT OPERATOR: 06/24/17 1332 DIS IN 04/14/17 [facility] [address] [place] [address]
== END 2017-04-14 12:19 | disposition home or self-care (01) | DRG 57 ==
LOC: D.REHAB 16:34
PROVIDERS: ADMIT Emergency Medicine
DX: I69.351 Hemiplegia and hemiparesis following cerebral infarction affecting right dominant side (principal); I69.391 Dysphagia following cerebral infarction; I69.392 Facial weakness following cerebral infarction; I25.10 Atherosclerotic heart disease of native coronary artery without angina pectoris; I34.0 Nonrheumatic mitral (valve) insufficiency; I07.1 Rheumatic tricuspid insufficiency; I65.21 Occlusion and stenosis of right carotid artery; E78.5 Hyperlipidemia, unspecified; I10 Essential (primary) hypertension; J45.909 Unspecified asthma, uncomplicated; F03.90 Unspecified dementia, unspecified severity, without behavioral disturbance, psychotic disturbance, mood disturbance, and anxiety

== ENCOUNTER 2017-06-01 08:14 | Emergency (ER) | payer MEDICARE ==
[2017-06-01 08:34] LABS: BASOPHILS 0.2 % (0-2); EOSINOPHILS 2.2 % (0-7); HEMATOCRIT 42.4 % (42.0-54.0); HEMOGLOBIN 14.5 g/dL (13.5-17.5); IMMATURE GRANULOCYTES 0.1 % (0-5); MCH 31.4 pg (26.0-34.0); MCHC 34.2 g/dL (31.0-37.0); MCV 91.8 fL (80.0-100.0); MEAN PLATELET VOLUME 10.3 fL (7.4-10.4); MONOCYTES 10.9 % (2-11); NEUTROPHILS 64.6 % (40-80); RBC 4.62 10x6/uL (4.20-6.10); RDW 12.6 % (11.5-14.5); WBC 8.1 10x3/uL (4.8-10.8)
[2017-06-01 08:47] LABS: PLATELET COUNT 199 10x3/uL (130-400)
[2017-06-01 08:54] LABS: ALBUMIN 3.3 g/dL (3.4-5.0); ALKALINE PHOSPHATASE 106 U/L (46-116); ALT (SGPT) 12 U/L (10-68); APTT 35.4 SECONDS (22.8-39.4); BILIRUBIN - TOTAL 0.31 mg/dL (0.2-1.3); CALC OSMOLALITY 278 mosm/kg (275-300); CALCIUM 8.6 mg/dL (8.5-10.1); CARBON DIOXIDE 29.5 mmol/L (21.0-32.0); CHLORIDE - SERUM 101 mmol/L (98-107); CREATININE - SERUM 1.2 mg/dL (0.6-1.3); GLUCOSE 124 mg/dL (74-106); INR 1.56 (0.85-1.17); POTASSIUM - SERUM 3.8 mmol/L (3.5-5.1); PROTEIN - SERUM 7.4 g/dL (6.4-8.2); PROTIME 18.1 SECONDS (11.6-15.0); SODIUM 140 mmol/L (136-145); UREA NITROGEN 10 mg/dL (7-18); eGFR NON AFRICAN AMERICAN 62 mL/min (90-120)
[2017-06-01 09:05] LABS: CKMB 2.1 U/L (0.0-3.6); CREATINE KINASE 58 UL (21-232); TROPONIN-I 0.024 ng/mL (0.000-0.060)
== END 2017-06-01 11:08 | disposition other institution (70) ==
LOC: D.ER 08:14
PROVIDERS: Family Medicine
DX: I63.9 Cerebral infarction, unspecified (principal)

== ENCOUNTER 2017-08-21 07:15 | Emergency (ER) | payer MEDICARE | END 2017-08-21 09:47 | disposition home or self-care (01) | LOC: D.ER 07:15 | DX: S93.601A Unspecified sprain of right foot, initial encounter (principal); W19.XXXA Unspecified fall, initial encounter; Y93.89 Activity, other specified; Y92.89 Other specified places as the place of occurrence of the external cause; S93.401A Sprain of unspecified ligament of right ankle, initial encounter; Z86.73 Personal history of transient ischemic attack (TIA), and cerebral infarction without residual deficits ==

== ENCOUNTER 2017-08-25 07:16 | Emergency (ER) | payer MEDICARE ==
[2017-08-25 07:36] LABS: BASOPHILS 0.1 % (0-2); EOSINOPHILS 0.1 % (0-7); HEMATOCRIT 23.3 % (42.0-54.0); IMMATURE GRANULOCYTES 0.3 % (0-5); LYMPHOCYTES 5.5 % (15-50); MCH 28.2 pg (26.0-34.0); MCHC 31.8 g/dL (31.0-37.0); MCV 88.9 fL (80.0-100.0); MEAN PLATELET VOLUME 9.9 fL (7.4-10.4); MONOCYTES 6.4 % (2-11); NEUTROPHILS 87.6 % (40-80); RBC 2.62 10x6/uL (4.20-6.10); RDW 14.6 % (11.5-14.5); WBC 18.8 10x3/uL (4.8-10.8)
[2017-08-25 07:50] LABS: ALBUMIN 3.2 g/dL (3.4-5.0); ANION GAP 18.8 mmol/L (8-16); BILIRUBIN - TOTAL 1.06 mg/dL (0.2-1.3); CARBON DIOXIDE 23.4 mmol/L (21.0-32.0); CREATININE - SERUM 1.8 mg/dL (0.6-1.3); POTASSIUM - SERUM 4.2 mmol/L (3.5-5.1); PROTEIN - SERUM 7.7 g/dL (6.4-8.2)
[2017-08-25 07:54] LABS: PROTIME 119.5 SECONDS (11.6-15.0)
[2017-08-25 07:55] LABS: HEMOGLOBIN 7.4 g/dL (13.5-17.5); INR 17.07 (0.85-1.17); PLATELET COUNT 543 10x3/uL (130-400)
[2017-08-25 07:56] LABS: APTT 179.2 SECONDS (22.8-39.4)
== END 2017-08-25 10:00 | disposition other institution (70) ==
LOC: D.ER 07:16
PROVIDERS: Emergency Medicine
DX: I62.9 Nontraumatic intracranial hemorrhage, unspecified (principal); K92.2 Gastrointestinal hemorrhage, unspecified; D62 Acute posthemorrhagic anemia; N28.9 Disorder of kidney and ureter, unspecified; R73.9 Hyperglycemia, unspecified

== ENCOUNTER 2017-11-14 03:16 | Emergency (ER) | payer MEDICARE | END 2017-11-14 04:49 | disposition home or self-care (01) | LOC: D.ER 03:16 | DX: S01.111A Laceration without foreign body of right eyelid and periocular area, initial encounter (principal); W18.30XA Fall on same level, unspecified, initial encounter; Y93.01 Activity, walking, marching and hiking; Y92.129 Unspecified place in nursing home as the place of occurrence of the external cause; S60.410A Abrasion of right index finger, initial encounter; Z86.73 Personal history of transient ischemic attack (TIA), and cerebral infarction without residual deficits ==